=== PATIENT | male | born 1995 | race Caucasian/White ===

== ENCOUNTER 2022-12-08 11:14 | Outpatient (REF) | payer OTHER, SELFPAY ==
[2022-12-08 11:37] LABS: MANUAL DIFF FLAG NO
[2022-12-08 12:14] LABS: Basophils Percent Auto 0.4 % (0-2); Eosinophils Absolute Auto 0.1 X10*3/uL (0.0-0.4); Eosinophils Percent Auto 2.1 % (0-4); Hematocrit 43.4 % (42.0-52.0); Hemoglobin 14.4 g/dl (14.0-18.0); Imm Gran Abs Auto 0.01 X10*3/uL (0.00-0.03); Imm Gran Pct Auto 0.2 % (0.0-0.4); Lymphocytes Absolute Auto 1.7 X10*3/uL (1.2-4.9); Lymphocytes Percent Auto 29.2 % (20-40); Mean Corpuscular HGB Conc 33.2 g/dl (31.0-36.0); Mean Corpuscular Hemoglobin 30.7 pg (27.0-33.0); Mean Corpuscular Volume 92.5 fL (80.0-98.0); Monocytes Absolute Auto 0.5 X10*3/uL (0.1-1.2); Monocytes Percent Auto 8.1 % (2-11); Neutrophils Absolute Auto 3.4 x10*3/uL (2.0-8.3); Platelet Count 210 X10*3/uL (160-400); Red Blood Count 4.69 X10*6/uL (4.60-5.80); Red Cell Distribution Width 12.5 % (11.0-16.0); White Blood Count 5.7 X10*3/uL (4.8-10.8)
[2022-12-08 12:51] LABS: Alanine Aminotransferase 26 U/L (0-40); Albumin Level 4.5 g/dL (3.5-5.0); Alkaline Phosphatase 56 U/L (39-117); Anion Gap 12 (12-20); Aspartate Amino Transferase 28 U/L (5-37); Bilirubin Total 0.7 mg/dL (0.0-1.0); Blood Urea Nitrogen 13 mg/dL (9-16); Calcium 9.6 mg/dL (8.4-10.2); Carbon Dioxide 30 mmol/L (22-29); Chloride 105 mmol/L (96-108); Cholesterol 168 mg/dL; Estimated Glomerular Filt Rate > 60; Glucose Random 75 mg/dL (60-115); HDL Cholesterol 78 mg/dL; LDL Cholesterol Calculated 75 mg/dl; Potassium 4.4 mmol/L (3.3-5.1); Sodium 143 mmol/L (135-145); Total Protein 7.3 g/dL (6.5-8.0); Triglycerides 77 mg/dL
[2022-12-08 13:00] LABS: Thyroid Stimulating Hormone 1.06 uIU/mL (0.32-4.0)
== END 2022-12-08 11:15 | disposition home or self-care (01) ==
LOC: HO.LAB 11:14
PROVIDERS: PCP Internal Medicine; Visit Provider Internal Medicine
DX: R10.10 Upper abdominal pain, unspecified (principal); K21.9 Gastro-esophageal reflux disease without esophagitis
CPT/HCPCS: 36415; 80053; 80061; 84443; 85025

== ENCOUNTER 2023-03-30 09:45 | Outpatient (REF) | payer OTHER, SELFPAY | END 2023-03-30 09:46 | disposition home or self-care (01) | LOC: HO.US 09:45 | PROVIDERS: PCP Physician Assistant; Visit Provider Internal Medicine | DX: R10.13 Epigastric pain (principal) | CPT/HCPCS: 87338 ==

== ENCOUNTER 2023-04-12 07:43 | Outpatient (REF) | payer OTHER, SELFPAY ==
--- NOTE | ~2023-04-12 | US_ITS ---
EXAMINATION: US ABDOMEN COMPLETE CLINICAL INFORMATION: Epigastric pain. COMPARISON: None available. TECHNIQUE: Real-time imaging of the abdominal viscera. Limited visualization due to bowel gas. FINDINGS: PANCREAS: Limited visualization of pancreatic tail and head. Imaged portion of pancreatic body is unremarkable. ABDOMINAL AORTA: Nonaneurysmal. INFERIOR VENA CAVA: Visualized portions are normal. LIVER: Increased hepatic parenchymal heterogeneity and echogenicity which could be associated with hepatocellular disease/hepatic steatosis and substantially limits visualization. GALLBLADDER: Borderline gallbladder wall thickening of 0.3 cm. A 0.3 cm gallbladder polyp. Small mobile gallstones. COMMON BILE DUCT: Normal in caliber measuring 0.3 cm in diameter. RIGHT KIDNEY: No hydronephrosis. No renal calculi. Limited visualization. The kidney measures 10.6 cm in maximum dimension. LEFT KIDNEY: No hydronephrosis. No renal calculi. Limited visualization. The kidney measures 11.2 cm in maximum dimension. SPLEEN: Normal. The spleen measures 12.4 cm in maximum dimension. FREE FLUID: None. US/US abdomen complete IMPRESSION: 1. A 0.3 cm gallbladder polyp. Small mobile gallstones. Borderline gallbladder wall thickening of 0.3 cm. 2. Increased hepatic parenchymal heterogeneity and echogenicity which could be associated with hepatocellular disease/hepatic steatosis and substantially limits visualization.
== END 2023-04-12 07:44 | disposition home or self-care (01) ==
LOC: HO.US 07:43
PROVIDERS: PCP Physician Assistant; Visit Provider Internal Medicine
DX: R10.13 Epigastric pain (principal)
CPT/HCPCS: 76700

== ENCOUNTER 2023-05-10 10:20 | Outpatient (AMB) | payer OTHER, SELFPAY ==
--- NOTE | 2023-05-10 10:36 | MHC.OFFVIS ---
Intake Vital Signs 05/10/23 10:40 Height 5 ft 5 in Weight 160 lb 8 oz BMI 26.7 BP 150/76 H Blood Pressure Location Lt brachial Position Sitting Pulse 75 Intake Visit Reasons: gallstones Intake Note: Patient is seen in office for evaluation and treatment of gallstones. Pt c/o: onset one year, on/off pain in the center of the abdomen, denies nausea, vomit, diarrhea, constipation, occasional back pain, had ultrasound done refer: Drea u/s: 04/12/23 Allergies No Known Allergies Allergy (Verified 05/10/23 10:37) Medication List - Last Reconciled 05/10/23 by Kavon Costa MD omeprazole 20 mg PO QAM HPI HPI Comments History of Present Illness Details 27-year-old male patient presenting for evaluation of abdominal pain in the epigastrium with occasional radiation into the back. The pain is episodic with no clear inciting or relieving factors. The pain was initially felt to be due to the xiphoid process or anxiety however recent workup with ultrasound of the abdomen did reveal mobile gallstones within the gallbladder as well as a gallbladder polyp. Patient has a family history of gallbladder issues and reports that his mother underwent cholecystectomy. He denies fever, chills, nausea or vomiting. He reports eating [place] fries recently and having an increase in the abdominal pain but normally avoids fatty/greasy foods. PFSH Family History Mother Breast CA Colon cancer Maternal Grandmother Lung cancer Social History Alcohol intake: current Alcohol intake frequency: holidays/special occasions only Patient Tobacco Use Status: Never used Tobacco Review of Systems Const All systems reviewed & are unremarkable except as noted in HPI and below Denies chills, Denies fever(s), Denies headache(s), Denies poor appetite and Denies weakness ENT Denies headache(s) Card Denies chest pain, Denies irregular heart rhythm, Denies palpitations and Denies dyspnea Resp Denies cough, Denies excessive phlegm production and Denies dyspnea GI Reports abdominal pain, Denies bloating, Denies change in bowel habits, Denies constipation, Denies heartburn, Denies diarrhea, Denies nausea and Denies vomiting Denies difficulty urinating and Denies urinary frequency Musc Denies back pain, Denies muscle weakness and Denies numbness Skin/Breast Denies changing lesions and Denies unusual bruising Neuro Denies headache(s), Denies numbness, Denies paresthesias and Denies weakness Psych Denies anxiety and Denies depression Endo Denies palpitations Germán/Lymph Denies lymphadenopathy Physical Exam Const General: cooperative and no acute distress Nutritional Appearance: well nourished Orientation/consciousness: patient oriented x3 Limitations: no limitations HEENT Head: Yes normocephalic and Yes atraumatic Ears: hearing grossly normal bilaterally Resp Effort & Inspection: normal respiratory effort, no audible wheezes, no cough and no respiratory distress Cardio Jugular venous distension: no JVD GI Inspection: Yes normal to inspection Palpation (GI): Soft to palpation, nontender, no guarding, not rigid and No hepatosplenomegaly present Skin Other: Warm, dry, no rash No jaundice Neuro General: patient oriented x3 Extrem General: Yes no clubbing, cyanosis or edema Results Reviewed Results Reviewed: Ultrasound of abdomen reviewed Assessment & Plan Assessment & Plan (1) Biliary colic: Code(s): K80.50 - Calculus of bile duct without cholangitis or cholecystitis without obstruction (2) Cholelithiasis: Code(s): K80.20 - Calculus of gallbladder without cholecystitis without obstruction Qualifiers: Cholelithiasis location: gallbladder Cholecystitis presence: without cholecystitis Biliary obstruction: without biliary obstruction Qualified Code(s): K80.20 - Calculus of gallbladder without cholecystitis without obstruction (3) Gallbladder polyp: Code(s): K82.4 - Cholesterolosis of gallbladder Plan 27-year-old male patient presenting with episodes of abdominal pain in the epigastrium of unclear etiology. Workup with ultrasound of the abdomen does reveal mobile gallstones within the gallbladder as well as a gallbladder polyp. Patient's symptoms do seem to be related to the gallbladder but are rather mild at this time. I discussed laparoscopic cholecystectomy verses continued observation of the symptoms. He has a scheduled vacation in the next several weeks and wishes to hold off on any surgery at this time. I recommended he keep record of the frequency of his abdominal pain and duration of the abdominal pain to identify any patterns. He will call us should he wish to schedule surgery. Coding Level of Care Code New Pt Level 4 (13874) Diagnoses Biliary colic K80.50 Calculus of gallbladder without cholecystitis without obstruction K80.20 Cholelithiasis location: gallbladder Cholecystitis presence: without cholecystitis Biliary obstruction: without biliary obstruction Gallbladder polyp K82.4
[2023-05-10 10:40] VITALS: BP 150/76; PULSE 75; BMI 26.7
== END 2023-05-10 10:57 | disposition home or self-care (01) ==
PROVIDERS: PCP Physician Assistant; Visit Provider Surgery
DX: K80.50 Calculus of bile duct without cholangitis or cholecystitis without obstruction (principal); K80.20 Calculus of gallbladder without cholecystitis without obstruction
CPT/HCPCS: 99204

== ENCOUNTER → 2023-05-10 10:20 | Outpatient (BNVA) | payer OTHER, SELFPAY | PROVIDERS: PCP Physician Assistant; Visit Provider Surgery ==

== ENCOUNTER 2023-08-11 06:28 | Day surgery (SDC) | payer OTHER, SELFPAY ==
[2023-08-09 08:31] VITALS: BMI 24.1
[2023-08-11 06:42] VITALS: BP 144/86; PULSE 82; RESP 18; TEMP 36.4; BMI 21.3
[2023-08-11 06:50] VITALS: BMI 21.3
[2023-08-11] MEDS: Lactated Ringers 1,000 ML 100 ML IVCONT (07:05)
--- NOTE | 2023-08-11 07:10 | HO.ANESPROP2 ---
PMF Active Problems Active Problems: All Active Problems Gallbladder polyp (Acute) Cholelithiasis (Acute) Biliary colic (Acute) Family History Family History Mother Breast CA Colon cancer Maternal Grandmother Lung cancer Family history of problems with anesthesia: No Surgical History History of Problems with Anesthesia: No Social History Social History Alcohol intake: current Alcohol intake frequency: holidays/special occasions only Patient Tobacco Use Status: Never used Tobacco Use of substances other than those prescribed or required for medical reasons: No Are you DNR?: No Advance Directives: No Advance Directives Information Provided: Yes Meds Allergies Allergy/AdvReac Type Severity Reaction Status Date / Time No Known Allergies Allergy Verified 05/10/23 10:37 Active Medications: Current Medications Lactated Ringer's (Lr) 1,000 mls @ 100 mls/hr IVCONT .Q10H ALICIA Last Admin: 08/11/23 07:05 Dose: 100 mls/hr Exam Height,Weight and Vital Signs: Height 5 ft 5 in Weight 58.06 kg Last Vital Signs Temp 97.6 F 08/11/23 06:42 Pulse 82 08/11/23 06:42 Resp 18 08/11/23 06:42 BP 144/86 H 08/11/23 06:42 Airway Mallampati Class: II TM Dist: >3cm Neck ROM: Full Assessment and Plan Assessment Anesthesia Assessment: Anesthesia Plan Discussed and Chart Reviewed Final Anesthetic Review Family History of Problems with Anesthesia: No History of Problems with Anesthesia: No NPO: Yes ASA Class: I Final Preanesthetic Review: No Changes in Pt Med Stat, Meds/Allgs Chart Reviewed, Consent Obtained/Reviewed and Anes Risks/Benef Reviewed Patient Risk: Low Procedure Risk: Low Anesthetic Plan Anesthetic Plan: TIVA Disposition: Standard PACU
[2023-08-11 08:03] VITALS: BP 91/44; PULSE 65; RESP 16; TEMP 36.4; O2SAT 98
--- NOTE | 2023-08-11 08:04 | PM.OP ---
Brief Operative Note Date of Service: 08/11/23 Pre-op diagnosis: GERD, abdominal pain Post-op diagnosis: other (Gastritis, GERD, small hiatal hernia) Procedure: EGD with biopsies Surgeon: Ernie Shepard MD Anesthesia: MAC Was an Slasher Machine Operator used for this Procedure?: No Estimated blood loss (mL): 2.0 Pathology: other (A. Descending duodenum B. Gastric antrum C. EG Junction at 36cm) Condition: stable Disposition: PACU
[2023-08-11 08:18] VITALS: BP 126/74; PULSE 74; RESP 18; TEMP 36.1; O2SAT 98
--- NOTE | 2023-08-11 08:39 | OP_ITS ---
DATE OF SERVICE: 08/11/2023 SURGEON: Ernie Shepard MD INDICATIONS: The patient presents for evaluation of upper abdominal pain and gastroesophageal reflux. Full consent has been obtained from him for this, including risks of bleeding and perforation. PREOPERATIVE DIAGNOSIS: POSTOPERATIVE DIAGNOSIS: PROCEDURE PERFORMED: Esophagogastroduodenoscopy with biopsies. ESTIMATED BLOOD LOSS: COMPLICATIONS: ANESTHESIA: Monitored anesthesia care. ASSISTANTS: SPECIMENS: PREOPERATIVE DIAGNOSES: Gastroesophageal reflux and upper abdominal pain. POSTOPERATIVE DIAGNOSES: Gastroesophageal reflux and upper abdominal pain, mild gastritis, small hiatal hernia, gastroesophageal reflux, rule out celiac disease. DESCRIPTION OF PROCEDURE: The patient was placed in the left lateral decubitus position. The Olympus video gastroscope was passed in the posterior oropharynx and upper esophagus under direct vision. The scope was passed slowly to the distal esophagus. The gastroesophageal junction appeared at 36 cm. This area was notable for some slight irregularity and some erythema, edema, and some minimal friability. There was no gross evidence of esophagitis nor Andrews's mucosa. The scope entered the stomach. There was a small hiatal hernia. There was a small amount of retained old food in the stomach but a very minimal amount. The scope was advanced to the pylorus. The duodenum was cannulated to the descending portion. The duodenum including the bulb appeared normal without mass or ulceration. Biopsies were obtained from the 2nd and 3rd portions of duodenum. The scope was withdrawn back into the stomach. The gastric antrum and body had some areas of erythema, edema, and some minimal friability. There were no erosions or ulceration. Biopsies were obtained. There was good peristalsis. The scope was retroflexed visualizing the proximal stomach carefully, which appeared normal, without any sign of mass or ulceration. The scope was straightened and withdrawn back to the esophagus. Biopsies were obtained at the EG junction at 36 cm. Proximal to this the esophageal mucosa appeared normal. The scope was withdrawn from the patient. He tolerated the procedure well and was returned to the recovery area in stable condition. IMPRESSION: 1. Gastroesophageal reflux. 2. Small hiatal hernia. 3. Gastritis. 4. Rule out celiac disease. PLAN: The results of the biopsies will be checked. Given the findings, particularly in regard to the area of reflux, I did recommend that he go back on omeprazole 20 mg daily. Alternatively, he could use a [id number]-jaime if he prefers to do that as well. The results of the biopsies will be checked. He will follow up with Dr. Costa regarding the gallstones and possible cholecystectomy. He will be seen in followup by me later in the year as well. MD JING Baxter/REINA / [id number] MTDD
== END 2023-08-11 08:44 | disposition home or self-care (01) ==
PROVIDERS: PCP Physician Assistant; Visit Provider Internal Medicine
PROC: 0DJ08ZZ Inspection of Upper Intestinal Tract, Via Natural or Artificial Opening Endoscopic (ICD-10-PCS; CPT 43235; principal; 2023-08-11 07:30)
DX: K29.70 Gastritis, unspecified, without bleeding (principal); K21.00 Gastro-esophageal reflux disease with esophagitis, without bleeding; K44.9 Diaphragmatic hernia without obstruction or gangrene
CPT/HCPCS: 43239; 88305; 88313; 88342; J2250; J2704

== ENCOUNTER 2023-11-08 10:15 | Outpatient (AMB) | payer OTHER, SELFPAY ==
--- NOTE | 2023-11-08 10:16 | MHC.OFFVIS ---
Intake Visit Reasons: New Pt - Right Shoulder Pain Intake Note: Saul is a 28 year old male who complaints of right shoulder pain and weakness. The patient states that he 1st injured his right shoulder several years ago while playing hockey. He reaggravated his shoulder recently while lifting weights. He reports weakness when lifting his right hand above shoulder height. He has tried Tylenol and anti-inflammatory medicines which gave him minimal relief. He did take 1 month off from working out which gave him temporary relief. His pain returned once he started lifting weights again. Allergies No Known Allergies Allergy (Verified 05/10/23 10:37) Medication List - Last Reconciled 11/08/23 by Bart Maldonado MD No Known Home Meds PFSH Family History Mother Breast CA Colon cancer Maternal Grandmother Lung cancer Social History Alcohol intake: current Alcohol intake frequency: holidays/special occasions only Patient Tobacco Use Status: Never used Tobacco Telehealth Telehealth Telehealth Platform: Telephone Patient Identification confirmed using: Name, : Yes Telehealth method: voice only Patient verbally consented to treatment: Yes Patient verbally consented to billing insurance company: Yes Minutes spent on Phone/Video with Pt.: 12 Assessment & Plan Assessment & Plan (1) Right shoulder pain: Code(s): M25.511 - Pain in right shoulder Category: Medical Plan Mr. Nayak presents with right shoulder pain and weakness possibly due to a full-thickness rotator cuff tear. Thus, I will send the patient for an MRI of his right shoulder for further evaluation. I will see him back once the MRI is completed to discuss the findings and treatment options. Will continue with his range of motion exercises in the meantime. Coding Level of Care Code Tele Est Pt Level 1 (23944) Diagnoses Right shoulder pain M25.511
== END 2023-11-08 10:16 | disposition home or self-care (01) ==
LOC: HO.HOS 10:15
PROVIDERS: PCP Physician Assistant; Visit Provider Orthopaedic Surgery
DX: M25.511 Pain in right shoulder (principal)
CPT/HCPCS: 99211

== ENCOUNTER → 2023-11-08 10:15 | Outpatient (BNVA) | payer OTHER, SELFPAY | PROVIDERS: PCP Physician Assistant; Visit Provider Orthopaedic Surgery ==

== ENCOUNTER 2023-11-21 19:40 | Outpatient (REF) | payer OTHER, SELFPAY ==
--- NOTE | ~2023-11-21 | MR_ITS ---
EXAMINATION: MR SHOULDER WITHOUT CONTRAST, RIGHT CLINICAL INFORMATION: Worsening right shoulder pain. COMPARISON: Right shoulder radiographs dated 11/26/2016. TECHNIQUE: MRI of the shoulder without contrast was performed on a high-field scanner. FINDINGS: ROTATOR CUFF: Intact. No muscle atrophy or fatty infiltration. BICEPS: Intact. CORACOACROMIAL ARCH: The undersurface of the acromion is flat with no subacromial spur. Mild acromioclavicular osteoarthritis. LABRUM/CAPSULE: Nondisplaced undersurface tear of the posterior and posteroinferior labrum with a posteroinferior paralabral cyst measuring up to 0.6 x 2.4 x 1.2 cm. Intact joint capsule. GLENOHUMERAL JOINT/MARROW: Cortical irregularity along the posterior and posteroinferior glenoid with adjacent articular cartilage full-thickness fissuring/loss and subchondral cystic change as well as small marginal osteophytes. Findings likely represent sequela of a chronic injury. No marrow edema or evidence of acute osseous injury. MR/MR shoulder RT wo con IMPRESSION: 1. Nondisplaced undersurface tear of the posterior and posteroinferior labrum with a posteroinferior paralabral cyst measuring up to 2.4 cm. 2. Cortical irregularity along the posterior and posteroinferior glenoid with adjacent full-thickness articular cartilage loss and subchondral cystic change. Findings likely represent sequela of a chronic injury. No marrow edema or evidence of acute osseous injury. 3. Mild acromioclavicular osteoarthritis.
== END 2023-11-21 19:41 | disposition home or self-care (01) ==
LOC: HO.MRI 19:40
PROVIDERS: PCP Physician Assistant; Visit Provider Orthopaedic Surgery
DX: M25.511 Pain in right shoulder (principal)
CPT/HCPCS: 73221